=== PATIENT | male | born 1990 | race African-American/Black ===

== ENCOUNTER 2017-03-23 23:23 | Emergency (ER) | payer SELFPAY ==
[~2017-03-23] VITALS: Ht 167.6 cm; Wt 72.6 kg
[2017-03-23 23:25] VITALS: BP 140/98
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
[2017-03-23 23:44] VITALS: BP 140/98
== END 2017-03-23 23:44 | disposition home or self-care (01) ==
LOC: EDBD 23:23 → EMR 23:41
DX: S51.012A Laceration without foreign body of left elbow, initial encounter (principal); Y04.2XXA Assault by strike against or bumped into by another person, initial encounter; Y92.89 Other specified places as the place of occurrence of the external cause